=== PATIENT | female | born 1935 | race Caucasian/White ===

== ENCOUNTER 2019-04-08 12:27 | Emergency (ER) | payer OTHER ==
[~2019-04-08] VITALS: Ht 162.6 cm; Wt 56.2 kg
[~2019-04-08 12:27] MED LIST: ACET2SOL7; ASPI-247; CARV3.1240; CLOPIDOGREL; HYDR-1421; LISI-646; NITR0.4S31; ONDA-144; pepcid
[2019-04-08] MEDS ORDERED: SODIUM CHLORIDE 0.9% 1,000 ML IV ONE (13:47)
[2019-04-08] MEDS ORDERED: HYDROmorphone HCL 2 MG/ML VL IV ONE (14:00)
[2019-04-08] MEDS ORDERED: ONDANSETRON HCL 4 MG/2 ML VIAL IV ONE ×2 (14:00→17:15)
[2019-04-08 14:35] LABS: Basophils # (auto) 0.1 uL; Basophils % (auto) 0.7 % (0.0-2.0); Eosinophils # (auto) 0.1 uL; Eosinophils % (auto) 1.5 % (0.0-7.0); Hematocrit 42.7 % (36.0-46.0); Hemoglobin 14.7 g/dL (12.2-16.2); Lymphocytes % (auto) 11.7 % (10.0-50.0); Mean Corpuscular Hemoglobin 33.3 pg (28.0-32.0); Mean Corpuscular Hgb Conc. 34.3 g/dL (32.0-36.0); Monocytes # (auto) 0.4 uL; Neutrophils # (auto) 6.8 uL; Neutrophils % (auto) 81.1 % (37.0-80.0); Platelet Count (auto) 192 10^3/uL (140-450); Red Blood Cells 4.41 10^6/uL (4.0-5.20); Red Cell Distribution Width 13.5 % (11.8-14.3); White Blood Cell 8.4 10^3/uL (4.4-10.8)
[2019-04-08 14:50] LABS: INR 1.01 (0.9-1.15); Partial Thromboplastin Time 24.9 sec (23.64-32.05)
[2019-04-08 14:51] LABS: Albumin 3.2 g/dL (3.4-5.0); Calcium 9.2 mg/dL (8.5-10.1); Magnesium 2.2 mg/dL (1.6-2.6); Potassium 4.1 mmol/L (3.5-5.1)
[2019-04-08 14:55] LABS: BUN/Creatinine Ratio 34.5; Bilirubin, Total 0.4 mg/dL (0.2-1.0)
[2019-04-08 14:55] LABS: Urine Bacteria FEW /hpf (None Seen); Urine Blood Negative /uL (Negative); Urine Specific Gravity 1.011 (1.001-1.035); Urine WBC 2 /hpf (0 - 5)
[2019-04-08] MEDS ORDERED: MORPHINE SULF INJ 2 MG/ML SYRINGE 1ML IV ONE (17:15)
[2019-04-08 20:36] VITALS: BP 130/74
== END 2019-04-08 21:22 | disposition short-term general hospital (02) ==
LOC: EDBD 12:27 → ER 12:27
DX: S72.002A Fracture of unspecified part of neck of left femur, initial encounter for closed fracture (principal); N39.0 Urinary tract infection, site not specified; E44.1 Mild protein-calorie malnutrition; I25.10 Atherosclerotic heart disease of native coronary artery without angina pectoris; E78.5 Hyperlipidemia, unspecified; I10 Essential (primary) hypertension; I25.2 Old myocardial infarction; W19.XXXA Unspecified fall, initial encounter; Y93.89 Activity, other specified; Y92.009 Unspecified place in unspecified non-institutional (private) residence as the place of occurrence of the external cause; Y99.8 Other external cause status
CPT/HCPCS: 36415; 71045; 73502; 80053; 81001; 83735; 85025; 85610; 85730; 93005; 96374; 96375; 96376; 99285; J1170; J2270; J2405

== ENCOUNTER 2019-06-04 12:04 | Emergency (ER) | payer OTHER ==
[~2019-06-04] VITALS: Ht 162.6 cm; Wt 63.5 kg
[2019-06-04] MEDS ORDERED: ONDANSETRON HCL 4 MG/2 ML VIAL IV ONE (13:30)
[2019-06-04] MEDS ORDERED: MORPHINE SULFATE 4 MG/ML SYR/VIAL IV ONE (13:30)
[2019-06-04 15:12] VITALS: BP 161/78
== END 2019-06-04 15:24 | disposition short-term general hospital (02) ==
LOC: ER 12:04 → EDBD 12:04 → ER 15:24
DX: S42.92XA Fracture of left shoulder girdle, part unspecified, initial encounter for closed fracture (principal); E78.5 Hyperlipidemia, unspecified; I10 Essential (primary) hypertension; I25.2 Old myocardial infarction; Z87.891 Personal history of nicotine dependence; Z98.61 Coronary angioplasty status; Z79.899 Other long term (current) drug therapy; W18.00XA Striking against unspecified object with subsequent fall, initial encounter; Y93.89 Activity, other specified; Y92.098 Other place in other non-institutional residence as the place of occurrence of the external cause; Y99.8 Other external cause status
CPT/HCPCS: 73030; 73060; 93005; 96374; 96375; 99285; J2270; J2405